=== PATIENT | male | born 1975 | race Caucasian/White ===

== ENCOUNTER 2017-01-24 12:27 | Emergency (ER) | payer MEDICAID ==
[2017-01-24 13:39] LABS: BASOPHIL# 0.2 X 10^3uL (0.0-0.1); BASOPHILS 1.7 % (0.0-2.0); EOSINOPHILS 0.8 % (0.0-6.0); EOSINOPHILS# 0.1 X 10^3uL (0.0-0.4); HEMATOCRIT 50.8 % (42.0-54.0); HEMOGLOBIN 17.7 g/dL (14.0-18.0); LYMPHOCYTES 21.8 % (20.0-40.0); LYMPHOCYTES# 2.4 X 10^3uL (0.8-3.8); MEAN CELL VOLUME 90.7 fL (80.0-100.0); MEAN CORPUS. HGB CONCENTRATION 34.8 g/dL (32.0-36.0); MEAN CORPUSCULAR HEMOGLOBIN 31.6 pg (29.0-35.0); MEAN PLATELET VOLUME 8.6 fL (7.4-10.4); MONOCYTES# 0.8 X 10^3uL (0.2-1.0); NEUTROPHILS 68.7 % (54.0-75.0); NEUTROPHILS# 7.6 X 10^3uL (2.6-6.7); PLATELET COUNT 178 X 10^3uL (130-440); RED BLOOD COUNT 5.61 X 10^6uL (4.20-6.10); RED CELL DISTRIBUTION WIDTH 13.6 % (11.5-14.5); WHITE BLOOD COUNT 11.1 X 10^3uL (3.9-10.7)
[2017-01-24] MEDS ORDERED: ONDANSETRON HCL 4 MG/2 ML VIAL ONE (13:41)
[2017-01-24] MEDS ORDERED: KETOROLAC TROMETHAMINE 30 MG/ML VIAL ONE (13:41)
[2017-01-24 13:50] LABS: A/G RATIO 1.4; ALKALINE PHOSPHATASE 69 U/L (38-126); ALT 45 U/L (21-72); AST 27 U/L (17-59); BILIRUBIN, TOTAL 1.5 mg/dL (0.2-1.3); BLOOD UREA NITROGEN 15 mg/dL (9-20); CALCIUM 8.9 mg/dL (8.4-10.2); CHLORIDE 97 mmol/L (98-107); EST GLOMERULAR FILTRATION RATE > 60 mL/min; GLUCOSE 106 mg/dL (70-100); POTASSIUM 4.1 mmol/L (3.5-5.1); SODIUM 139 mmol/L (137-145); TOTAL PROTEIN 6.9 g/dL (6.3-8.2)
--- NOTE | 2017-01-24 14:23 | RADIOLOGY REPORT ---
Two views of the chest, without prior films for comparison, demonstrate the heart, vessels and lungs to be unremarkable. No infiltrate, fluid or pneumothorax is seen. IMPRESSION: Unremarkable two views of the chest. MTDD
--- NOTE | 2017-01-24 14:40 | CT REPORT ---
HISTORY: Lower lateral rib/abdominal pain. COMPARISON: None. TECHNIQUE: This examination was performed using automated exposure control, adjustment of mA or kV according to patient size, and/or use of iterative reconstruction technique. Multiple contiguous axial images were obtained from the lung bases through the pubic symphysis following administration of intravenous con trast. 125cc Isovue-300 contrast. FINDINGS: The lung bases are clear, except for calcified granuloma in the right lower lobe. There is no pleural or pericardial effusion. Included ribs appear unremarkable. Abdomen/pelvis: The liver, spleen, gallbladder, and bile ducts appear unremarkable. The pancreas show s mild fatty atrophy. The adrenal glands and kidneys appear normal. The abdominal aorta is normal in caliber. No enlarged lymph nodes are demonstrated. Diverticulosis involves the descending and sigmoid colon. Focal wall thickening and inflammatory pompa ge involves the mid descending colon. There is no free air or abscess. Remaining bowel is unremarkabl e. The bladder is grossly normal. No fracture or suspicious bony lesion is demonstrated. IMPRESSION: 1. Diverticulitis of the mid descending colon, without perforation or abscess. 2. Remainder of the abdomen and pelvis is unremarkable. Final Electronic Signature: This report was electronically signed by Mitesh Arnold MD on 01/24/2017 2:37 PM. laura /
[2017-01-24 15:15] LABS: URINE MUCUS NONE SEEN (Up to 25%); URINE RBC NONE SEEN (0-5/hpf); URINE SQUAMOUS EPITHELIAL CELL NONE SEEN (<= 15/hpf); URINE WBC NONE SEEN (0-4/hpf)
--- NOTE | 2017-01-24 15:16 | ER PHYSICIAN DOCUMENTATION ---
Physician Documentation [facility] Name:Simon Skelton Age:41 yrs Sex:Male :1975 Arrival Date:01/24/2017 Time:12:27 Bed4 Private MD: Arash Weir Disposition: 01/24 22:25 Chart complete. tl1 Disposition: 01/24/17 14:35 Discharged to Home/Self Care. Impression: Diverticulitis w/o Hemorrhage. - Condition is Good. - Discharge Instructions: ABDOMINAL PAIN, Unkown Cause, (Male). - Prescriptions for [place] 7.5- 325 mg Oral Tablet - take 1 tablet by ORAL route every 6 hours As needed; 20 tablet. Zofran 4 mg Oral Tablet - take 1-2 tablet by ORAL route every 4-6 hours As needed; 10 tablet. Flagyl 500 mg Oral Tablet - take 1 tablet by ORAL route every 6 hours for 10 days; 40 tablet. Cipro 500 mg Oral - take 1 tablet by ORAL route every 12 hours for 10 days; 20 tablet. - Medical Reconciliation form form. - Follow up: Private Physician; When: 2 - 3 days; Reason: Recheck today's complaints, Continuance of care. - Problem is new. - Symptoms are unchanged. HPI: 12:40 This 41 yrs old Male presents to ER via Walk In with complaints of Pain. tl1 12:40 The patient presents with abdominal pain in the left upper quadrant. Onset: The tl1 symptoms/episode began/occurred suddenly, as he was standing up after bending over yesterday.. The symptoms do not radiate. Associated signs and symptoms: Pertinent negatives: anorexia, blood in stools, constipation, diarrhea, dysuria, fever, headache, hematuria, nausea, palpitations, shortness of breath, testicular pain, vomiting, vomiting blood. The symptoms are described as constant, crampy, sharp, waxing/waning, He has had about 6-7 episodes where the pain became intense with some kind of movement and was severe for several minutes prior to subsiding.. Historical: - Allergies: No known drug Allergies; - Home Meds: 1. Allopurinol Oral - PMHx: GOUT; - PSHx: None; - Tetanus: Other NA. - Ebola Screening: : Patient negative for fever greater than or equal to 101.5 degrees Fahrenheit, and additional compatible Ebola Virus Disease symptoms. - Immunization history: NA. - Social history: Smoking status: Patient states former smoker of tobacco. Patient uses alcohol on a daily basis. Patient/guardian denies using street drugs. ROS: 12:40 Abdomen/GI: Positive for abdominal pain, Negative for diarrhea, constipation, abdominal tl1 distension, anorexia, dysphagia, hematemesis, black/tarry stool, rectal pain, rectal bleeding, bowel incontinence. 12:40 Back: Negative for injury or acute deformity, decreased range of motion, pain at rest, pain with movement. 12:40 : Negative for hematuria, flank pain, difficulty urinating, foul smelling urine. 12:40 All other systems are negative. Exam: 12:40 Constitutional: This is a well developed, well nourished patient who is awake, alert, tl1 and in no acute distress. Head/Face: Normocephalic, atraumatic. Eyes: Pupils equal round and reactive to light, extra-ocular motions intact. Lids and lashes normal. Conjunctiva and sclera are non-icteric and not injected. Cornea within normal limits. Periorbital areas with no swelling, redness, or edema. ENT: Nares patent. No nasal discharge, no septal abnormalities noted. Tympanic membranes are normal and external auditory canals are clear. Oropharynx with no redness, swelling, or masses, exudates, or evidence of obstruction, uvula midline. Mucous membranes moist. Neck: Trachea midline, no thyromegaly or masses palpated, and no cervical lymphadenopathy. Supple, full range of motion without nuchal rigidity, or vertebral point tenderness. No Meningismus. Cardiovascular: Regular rate and rhythm with a normal S1 and S2. No gallops, murmurs, or rubs. Normal PMI, no JVD. No pulse deficits. 12:40 Respiratory: Lungs have equal breath sounds bilaterally, clear to auscultation and tl1 percussion. No rales, rhonchi or wheezes noted. No increased work of breathing, no retractions or nasal flaring. 12:40 Abdomen/GI: Inspection: abdomen appears normal, Bowel sounds: normal, Palpation: soft, mild abdominal tenderness, in the left upper quadrant, rebound tenderness, is not appreciated, voluntary guarding, is not appreciated, no appreciated organomegaly. 12:40 Back: pain, is absent, ROM is normal, CVA tenderness, is absent. 12:40 Musculoskeletal/extremity: Exam is negative for 12:40 Skin: Exam negative for rash. 12:40 Neuro: Exam negative for acute changes. Vital Signs: 12:40 BP 159 / 109; Pulse 87; Resp 16; Temp 98.7(O); Pulse Ox 95% on R/A; Weight 131.09 kg; nf Height 6 ft. 0 in. (182.88 cm); Pain 4/10; 15:02 BP 139 / 89; Pulse 66; Pulse Ox 93% on R/A; Pain 2/10; nf 12:40 Body Mass Index 39.20 (131.09 kg, 182.88 cm) nf MDM: 12:31 Patient medically screened. tl1 15:00 Differential diagnosis: bowel obstruction, Herpes Zoster, Irritable bowel syndrome, tl1 Mesenteric ischemia or infarction, Peritonitis, Pyelonephritis, Testicular Torsion, Ureterolithiasis, splenic rupture. Data reviewed: vital signs, nurses notes, old medical records. Data reviewed: and as a result, I will discharge patient. Counseling: I had a detailed discussion with the patient and/or guardian regarding: the historical points, exam findings, and any diagnostic results supporting the discharge/admit diagnosis, lab results, radiology results, the need for outpatient follow up, for a recheck, with the patient's primary care provider. Response to treatment: the patient's symptoms have mildly improved after treatment, and as a result, I will discharge patient. Special discussion: I discussed with the patient/guardian in detail that at this point there is no indication for admission to the hospital. It is understood, however, that if the symptoms persist or worsen the patient needs to return immediately for re-evaluation. Need for a high fiber diet and taking the antibiotics as prescribed.. 01/24 13:40 Order name: CBC AUTO DIF, MDIF/RMOR IF IND; Complete Time: 14:46 EDMS 01/24 14:45 Interpretation: WHITE BLOOD COUNT 11.1; HEMOGLOBIN 17.7; HEMATOCRIT 50.8; PLATELET tl1 COUNT 178. 01/24 13:52 Order name: COMPREHENSIVE METABOLIC PANEL; Complete Time: 14:46 EDMS 01/24 14:45 Interpretation: Normal. tl1 01/24 15:22 Order name: UA W/ MICRO -CULTURE IF IND EDMS 01/24 14:41 Order name: CAT SCAN; ABD/PEL W [id number]; Complete Time: 14:46 EDMS 01/24 14:45 Interpretation: Diverticulitis.See radiologist report. tl1 01/24 15:46 Order name: CXR 2V [id number] EDMS Dispensed Medications: 15:10 Drug: Cipro 500 mg; Route: PO; nf 15:15 Follow up: Response: Medication administered at discharge. nf 15:10 Drug: Flagyl 500 mg; Route: PO; nf 15:16 Follow up: Response: Medication administered at discharge. nf Point of Care Testing: Urine Dip: 15:10 pH: 7; ; Specific [place]: 1.010; Ketones: Negative; Glucose: Negative; Protein: nf Negative; Leukocytes: Negative; Nitrite: Negative ; Blood: Non Hemolyzed Trace; Bilirubin: Negative ; Urobilinogen: Normal Signatures: Homa Bella, RN RN Arash Adan MD MD tl1
--- NOTE | 2017-01-24 15:16 | ER NURSING DOCUMENTATION ---
Nurse's Notes [facility] Name:Simon Skelton Age:41 yrs Sex:Male :1975 Arrival Date:01/24/2017 Time:12:27 Bed4 Private MD: Diagnosis:Diverticulitis w/o Hemorrhage Presentation: 01/24 12:29 Acuity: JANY 3 rh 12:30 Transition of care: patient was not received from another setting of care. Notified ED nf Physician of patient's arrival and CC Dr. Gardiner notified. 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 Triage Assessment: 12:40 General: Appears in no apparent distress, well nourished, well groomed, Behavior is nf pleasant. Pain: Complains of pain in left anterior chest wall. 12:40 Neuro: No deficits noted. Cardiovascular: No deficits noted. Respiratory: Respiratory nf effort is even, unlabored, shallow, Respiratory pattern is regular, Breath sounds are clear bilaterally. no increased pain with palpation Reports pain with movement pain with respiration the patient has mild shortness of breath Denies shortness of breath labored breathing. Historical: - Allergies: No known drug Allergies; - Home Meds: 1. Allopurinol Oral - PMHx: GOUT; - PSHx: None; - Tetanus: Other NA. - Ebola Screening: : Patient negative for fever greater than or equal to 101.5 degrees Fahrenheit, and additional compatible Ebola Virus Disease symptoms. - Immunization history: NA. - Social history: Smoking status: Patient states former smoker of tobacco. Patient uses alcohol on a daily basis. Patient/guardian denies using street drugs. Screenin:41 Infectious Disease Risk None. Abuse screen: Denies threats or abuse. Nutritional nf screening: No deficits noted. Assessment: 12:41 See Triage Assessment done by same RN. nf Vital Signs: 12:40 BP 159 / 109; Pulse 87; Resp 16; Temp 98.7(O); Pulse Ox 95% on R/A; Weight 131.09 kg; nf Height 6 ft. 0 in. (182.88 cm); Pain 4/10; 15:02 BP 139 / 89; Pulse 66; Pulse Ox 93% on R/A; Pain 2/10; nf 12:40 Body Mass Index 39.20 (131.09 kg, 182.88 cm) ED Course: 12:28 Patient arrived in ED. cj 12:29 Triage completed. 12:30 Homa Bella, RENETTA is Primary Nurse. nf 12:31 Arash Gardiner MD is Attending Physician. tl1 12:41 Arm band placed on Bed in low position Call Light in Reach Gowned Side rails up x1. nf 12:41 Valuables Remains with patient. Door closed. Noise minimized. Lights dimmed. Moved to private room. Verbal reassurance given. Pillow given. 12:53 Patient moved to radiology. wilfred 13:01 Patient moved back from radiology. wilfred 13:30 Inserted peripheral IV: 18 gauge in left Wrist and blood collected. cb 14:[address] tt 14:20 Patient moved back from CT. tt 15:10 Urine collected. nf Administered Medications: 15:10 Drug: Cipro 500 mg; Route: PO; nf 15:15 Follow up: Response: Medication administered at discharge. nf 15:10 Drug: Flagyl 500 mg; Route: PO; nf 15:16 Follow up: Response: Medication administered at discharge. Point of Care Testing: Urine Dip: 15:10 pH: 7; ; Specific [place]: 1.010; Ketones: Negative; Glucose: Negative; Protein: nf Negative; Leukocytes: Negative; Nitrite: Negative ; Blood: Non Hemolyzed Trace; Bilirubin: Negative ; Urobilinogen: Normal Outcome: 14:35 Discharge ordered by . tl1 15:02 IV D/Georges nf 15:15 Patient left the ED. nf 15:15 Discharged to home ambulatory. nf 15:15 Condition: good 15:15 Discharge Assessment: Patient awake, alert and oriented x 3. No cognitive and/or functional deficits noted. Patient verbalized understanding of disposition instructions. 15:15 Discharge instructions given to patient, Instructed on discharge instructions, follow up and referral plans. medication usage, no drinking with medication, no driving heavy equipment, Demonstrated understanding of instructions, medications, Prescriptions given X 4, zofran and norco and flagyl and cipro 01/25 17:17 Discharge F/U Call: Spoke with: patient. Have you made a f/u appointment? yes Signatures: Yanna Antoine, RN RN Hmoa Sainz RN RN Alondra Chairez, Norma Gardiner, MD CHERELLE Antoine tl1 [place], Leilani Pierre, Genna newton
[2017-01-24] MEDS ORDERED: CIPROFLOXACIN HCL 500 MG TABLET PO ONE (15:18)
[2017-01-24] MEDS ORDERED: metroNIDAZOLE 500 MG TABLET PO ONE (15:18)
[2017-01-24 15:20] LABS: URINE APPEARANCE CLEAR; URINE COLOR YELLOW; URINE LEUKOCYTE ESTERASE NEGATIVE (NEGATIVE); URINE NITRITE NEGATIVE (NEGATIVE); URINE PROTEIN NEGATIVE (NEG - TRACE); URINE SPECIFIC GRAVITY 1.015 (0.001-1.035)
[2017-01-24 15:21] LABS: URINE BACTERIA NONE SEEN (<10/hpf); URINE BILIRUBIN NEGATIVE (NEGATIVE); URINE BLOOD NEGATIVE (NEGATIVE); URINE GLUCOSE NORMAL (NEGATIVE); URINE KETONE NEGATIVE (NEGATIVE); URINE UROBILINOGEN 0.2mg/dL (Normal) (NEG-1mg/dL)
== END 2017-01-24 15:16 | disposition home or self-care (01) ==
LOC: ER 12:27
DX: K57.32 Diverticulitis of large intestine without perforation or abscess without bleeding (principal)
CPT/HCPCS: 71020; 74177; 80053; 81001; 85025; 99284; J1170; J1885; J2405